=== PATIENT | female | born 1960 | race Caucasian/White ===

== ENCOUNTER 2020-04-30 17:25 | Emergency (ER) | payer SELFPAY ==
--- OUTSIDE RECORDS SUMMARY | 2020-04-30 17:28 | XMS REPORT | Clinical Summary ---
:1960 Author Organization [facility] Address [address] [place] [id number] Care Team Providers Name Role Phone Asked, Pcp Primary Care Provider Unavailable Allergies Active Allergy Reactions Severity Noted Date Comments Ciprofloxacin Shortness Of Breath High 09/29/2018 Hives Iodine 09/29/2018 Latex Rash Low 12/07/2007 Sulfa (Sulfonamide Antibiotics) 9 Midazolam 09/29/2018 Medications Not on file Active Problems Not on file Surgical History Surgery Date Site/Laterality Comments TONSILLECTOMY ABDOMINAL SURGERY Medical History Medical History Date Comments Anxiety HTN (hypertension) A-fib (HCC) Autoimmune disease (HCC) Congenital heart anomaly Osteoarthritis Abnormal liver enzymes Social History Tobacco Use Types Packs/Day Years Used Date Never Smoker Alcohol Use Drinks/Week oz/Week Comments Not Currently Sex Assigned at Date Recorded Not on file Last Filed Vital Signs Not on file Plan of Treatment Health Maintenance Due Date Last Done Comments COVID-19 VACCINE (#1) 1977 CERVICAL CANCER SCREENING 1982 BREAST CANCER SCREENING 09/29/2011 04/08/2009, 04/08/2009 COLONOSCOPY SCREENING 09/29/2011 SHINGLES VACCINES (#1) 09/29/2011 INFLUENZA VACCINE 12/02/2019 Results Not on fileafter 04/30/2019 Insurance Payer Benefit Plan / Subscriber ID Effective Dates Phone Addre ss Type Group MEDICARE MEDICARE PART A [id number] 1996-Present [facility] [place] Medicare AND B Advance Directives For more information, please contact: [phone] Type Date Recorded 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
--- OUTSIDE RECORDS SUMMARY | 2020-04-30 17:28 | XMS REPORT | Clinical Summary ---
:1960 Author Organization [facility] Address [address] [place] [address] Care Team Providers Name Role Phone Connie Olvera Primary Care Provider Allergies Active Allergy Reactions Severity Noted Date Comments Ciprofloxacin Shortness Of Breath High 09/29/2018 Hives Iodine Shortness Of Breath High 12/07/2007 Latex Rash Low 12/07/2007 Midazolam Other (See Comments) 12/07/2007 Heart c omplications Sulfamethoxazole-Trimetho Nausea And Vomiting High 02/09/20 14 Upsets stomach prim Medications Medication Sig Dispensed Refills Start Date End Date Status cholecalciferol, TAKE 1 CAPSULE ONCE 5 09/19/2018 Active vitamin D3, 50,000 EVERY WEEK unit capsule clonazePAM take 1 tablet (1 mg) 0 Active (KLONOPIN) 1 MG by oral route 3 times tablet per day cyanocobalamin Inject 1,000 mcg 5 08/25/2018 Active (VITAMIN B-12) 1,000 intramuscularly once mcg/mL injection every 3 weeks . cyproheptadine TAKE 2 ML BY MOUTH 3 08/11/2018 Active (PERIACTIN) 2 mg/5 TWICE DAILY mL syrup desoximetasone GENTLY MASSAGE INTO 1 09/24/2018 Active (TOPICORT) 0.25 % THE AFFECTED AREA 3 cream TIMES A DAY fentaNYL (DURAGESIC) Place 1 patch onto 0 06/28/2014 Active 50 mcg/hr patch the skin every third day . furosemide (LASIX) Take 40 mg by mouth 3 09/27/2018 Active 40 MG tablet daily . HYDROcodone-acetamin Take 1 tablet by 0 09/12/2018 Active ophen (NORCO 10-325) mouth 4 (four) times 10-325 mg per tablet daily as needed FOR PAIN. lisinopril Take 10 mg by mouth 0 08/09/2018 Active (PRINIVIL,ZESTRIL) daily . 10 MG tablet magnesium oxide Take 2 tablets by 3 08/11/2018 Active (MAG-OX) 400 mg mouth 2 (two) times (241.3 mg magnesium) daily. tablet metFORMIN Take 500 mg by mouth 5 09/19/2018 Active (GLUCOPHAGE-XR) 500 daily. MG 24 hr tablet methocarbamol Take 750 mg by mouth 3 08/11/2018 Active (ROBAXIN) 750 MG 4 (four) times daily tablet as needed . ondansetron (ZOFRAN) Take 8 mg by mouth as 0 Active 8 MG tablet needed . pantoprazole Take 40 mg by mouth 2 3 09/11/2018 Active (PROTONIX) 40 MG (two) times daily. tablet potassium chloride Take 20 mEq by mouth 4 07/14/2018 Active SA (K-DUR,KLOR-CON) daily . 20 MEQ tablet promethazine TAKE 1 TEASPOONFUL BY 3 08/11/2018 Active (PHENERGAN) 6.25 MOUTH EVERY 6 HOURS mg/5 mL syrup NEEDED FOR NAUSEA AND VOMITING tiZANidine Take 4 mg by mouth as 0 08/09/2018 Active (ZANAFLEX) 4 MG needed . tablet traZODone (DESYREL) Take 100 mg by mouth 1 9 Active 100 MG tablet as needed . ALPRAZolam (XANAX) 2 Take 2 mg by mouth 3 0 Active MG tablet (three) times daily. Active Problems Problem Noted Date Abnormal liver enzymes 09/29/2018 Last Assessment & Plan: Liver enzymes elevated in cholestatic pattern mild elevation in AP and GGT and history of previous elevation in a hepatocellular pattern without evidence of synthetic dysfunction. Unclear etiology, poss ible drug induced liver injury. She has risk factors for fatty liver with metabolic syndrome. We will complete a comprehensive workup to evaluate for other etiologies of liver disease including autoimmu ne including AMA, viral, metabolic and g enetic diseases. Sh has a pacemaker not compatible with MRI- we will get abdominal ultrasound to assess anatomy of the liver, fatty liver and assess bile ducts. f ibrsocan with fat cap as non-invasive as sessment of fibrosis and fat content. Immunity status testing 09/29/2018 Last Assessment & Plan: Serological tests will be completed to d etermine the presence of immunity to hepatitis A and B. If the patient does n ot have adequate immunity, we would recommend administration of appropriate vaccinatio n as per CDC guidelines by the primary care provider. Metabolic syndrome 09/29/2018 Last Assessment & Plan: She fits the criteria of metabolic syndrome with overwight, prediabetes, HTN and HLD and hypertriglyceridemia . Risk factor for fatty liver disease. It is safe to continue her current medications. We d iscussed the importance of weight loss w ith a focus on carbohydrate restriction and exercise in managing fatty liver disease.. She needs to have a better control of hyperlipidemia and hyperlipidemia. Cancer screening 09/29/2018 Last Assessment & Plan: Up to date with colorectal cancer screen ing - colonoscopy 2014 normal per patient. Family History Medical History Relation Name Comments Dementia Mother Heart disease Mother Stroke Mother Relation Name Status Comments Mother Social History Tobacco Use Types Packs/Day Years Used Date Never Smoker Smokeless Tobacco: Never Used Alcohol Use Drinks/Week oz/Week Comments No Alcohol Habits Answer Date Recorded How often do you have a drink containing alcohol? Never 09/29/2018 How many drinks containing alcohol do you have on a typical Not asked day when you are drinking? How often do you have six or more drinks on one occasion? No t asked Sex Assigned at Date Recorded Not on file Last Filed Vital Signs Not on file Plan of Treatment Health Maintenance Due Date Last Done Comments BREAST CANCER SCREENING 1960 COLON CANCER SCREENING COLONOSCOPY 1960 CERVICAL CANCER SCREENING PAP ONLY (Age 21-65) 1982 MEDICARE ANNUAL WELLNESS (YEAR 2 or FIRST YEAR if no 07/02/1997 IPPE) LIPID PANEL 2006 INFLUENZA VACCINE (#1) 2020 Results Not on fileafter 04/30/2019
--- OUTSIDE RECORDS SUMMARY | 2020-04-30 17:28 | XMS REPORT | Continuity of Care Document ---
:1960 Author Organization [facility] t Address [address] [place] [address] Care Team Providers Name Role Phone Asked, Pcp Primary Care Physician Unavailable Glenys OBANDO Attending Clinician Unavailable Problems Condition Condition Condition Status Onset Resolution Last Treating Co mments Source Name Details Category Date Date Treatment Clinician Date Abnormal Abnormal Disease [facility] - enzymes enzymes 00:00: t & Plan: Medic al 00 Liver Center enzymes elevated in cholestat ic pattern mild elevation in AP and GGT and history of previous elevation in a hepatocel lular pattern without evidence of synthetic dysfuncti on. Unclear etiology, possible drug induced liver injury. She has risk factors for fatty liver with metabolic syndrome. We will complete a comprehen sive workup to evaluate for other etiologie s of liver disease including autoimmun e including AMA, viral, metabolic and genetic diseases. Sh has a pacemaker not compatibl e with MRI- we will get abdominal ultrasoun d to assess anatomy of the liver, fatty liver and assess bile ducts. fibrsocan with fat cap as non-invas jeison assessmen t of fibrosis and fat content. Metabolic Metabolic Disease Active Last [facility] syndrome syndrome 09-29 Assessmen Ivania es - 00:00: t & Plan: Medical 00 She fits Center the criteria of metabolic syndrome with overwight , prediabet es, HTN and HLD and hypertrig lyceridem ia . Risk factor for fatty liver disease. It is safe to continue her current medicatio ns. We discussed the importanc e of weight loss with a focus on carbohydr ate restricti on and exercise in managing fatty liver disease.. She needs to have a better control of hyperlipi demia and hyperlipi demia. Cancer Cancer Disease Active Last [facility] screening screening 5-30 Assessmen L ukes - 00:00: t & Plan: Medical 00 Up to Center date with andi petty cancer screening - colonosco py 2013 normal per patient. Allergies, Adverse Reactions, Alerts Allergy Allergy Status Severity Reaction(s) Onset Inactive Treating Comm ents Source Name Type Date Date Clinician Ciproflo Propensi Active Shortness Of Hives [facility] xacin ty to Breath 5-30 [facility]i adverse 00:00: st reaction 00 s to drug Iodine Propensi Active [facility] ty to 09-29 [facility] adverse 00:00: st reaction 00 s to drug Sulfa Propensi Active [place] (Sulfona ty to 09-29 Methodi mide adverse 00:00: st Antibiot reaction 00 ics) s to drug Midazola Propensi Active [place] ty to 09-29 [facility] adverse 00:00: st reaction 00 s to drug Ciproflo Propensi Active Shortness Of Hives [facility] xacin ty to Breath -30 [facility] - adverse 00:00: Medical reaction 00 [facility] Sulfamet Propensi Active Nausea And 2013-[address] hoxazole ty to Vomiting 0 stomach [facility] - -Trimeth adverse 00:00: Medical oprim reaction 00 [facility] Latex Propensi Active Rash Miguel ty to 12-06 [facility]i adverse 00:00: st reaction 00 s to drug Iodine Propensi Active Shortness Of [facility] ty to Breath 12-06 [facility] - adverse 00:00: Medical reaction 00 [place] Latex Propensi Active Rash [facility] ty to 12-06 [facility] - adverse 00:00: Medical reaction 00 [place] Midazola Propensi Active Other (See Heart [facility] m ty to Comments) 12-06 complicat Luke [facility] - adverse 00:00: ions Medical reaction 00 [facility] Family History Family Member Diagnosis Comments Start Date Stop Date Source Natural mother Dementia [facility] Natural mother Heart disease [facility] Natural mother Stroke [facility] Social History Social Habit Start Date Stop Date Quantity Comments Source History SDOH [facility] - Alcohol Std Drinks Medica l Center History [facility] EILEEN Olson [facility] - Alcohol Binge Medical Alyssa ter Sex Assigned At [facility] andrew - [facility] Tobacco use and 2018-09-29 2018-09-29 Never used EILEEN Kiser kes - exposure 00:00:00 00:00:00 [facility] Alcohol intake 2018-09-29 2018-09-29 [facility] non-drinker of Medical Ce nter alcohol (finding) History [facility] 2018-09-29 2018-09-29 1 [facility] Frequency 00:00:00 00:00:00 [facility] Center Smoking Status Start Date Stop Date Source Never smoker [facility] andrew - M edical Center Medications Ordered Filled Start Stop Current Ordering Indication Dosage Frequency Signature Comments Components Source Medication Medication Date Date Medication? Clinician (SIG) Name Name ALPRAZolam Yes 2mg [id number] Take [address] (XANAX) 2 6-03 [id number] by mouth 3 [facility] - MG tablet 15:13: 3D (three) Medic al 16 times Center daily. clonazePAM 2018- Yes take 1 [facility] (KLONOPIN) 5-30 tablet (1 Luke s - 1 MG tablet 11:19: mg) by Medi gabriel 55 oral route Center 3 times per day ondansetron 2018- Yes 8mg Take [address] (ZOFRAN) 8 5-30 by mouth [facility] - MG tablet 11:19: as needed Med ical 55 . Center furosemide Yes 40mg QD Take [address] (LASIX) 40 5-28 by mouth [facility] - MG tablet 00:00: daily . Medic al 00 Center desoximetas Yes GENTLY [facility] one 5-25 MASSAGE [facility] - (TOPICORT) 00:00: INTO THE Med ical 0.25 % 00 AFFECTED Center cream AREA 3 TIMES A DAY cholecalcif Yes TAKE [address] [facility] [address] estela, 5-20 CAPSULE [facility] - vitamin D3, 00:00: ONCE EVERY Medical 50,000 unit 00 WEEK Center capsule metFORMIN Yes 500mg QD Take [address] (GLUCOPHAGE 5-20 mg by [facility]ukes - -XR) 500 MG 00:00: mouth Medic al 24 hr 00 daily. Center tablet HYDROcodone 2019- Yes 1{tbl} Take [address] -acetaminop 5-13 tablet by Ivania huff (NORCO 00:00: mouth 4 Medi gabriel 10-325) 00 (four) Center 10-325 mg times per tablet daily as needed FOR PAIN. pantoprazol 2018- Yes 40mg Q.5D Take [address] [facility] e 5-12 by mouth 2 [facility] - (PROTONIX) 00:00: (two) Medica l 40 MG 00 times Center tablet daily. cyanocobala 2018- Yes 1000ug Inject [facility] min 4-25 1,000 mcg [facility] - (VITAMIN 00:00: intramuscu Med ical B-12) 1,000 00 larly once Ce nter mcg/mL every 3 injection weeks . traZODone Yes 100mg Take [address] (DESYREL) 4-24 mg by [facility]ukes - 100 MG 00:00: mouth as Medical tablet 00 needed . Center cyproheptad Yes TAKE [address] ine 4-11 BY MOUTH [facility] - (PERIACTIN) 00:00: TWICE Medic al 2 mg/5 mL 00 DAILY Center syrup magnesium 2018-0 Yes 2{tbl} Q.5D Take [address] oxide 4-11 tablets by [facility] - (MAG-OX) 00:00: mouth 2 Medica l 400 mg 00 (two) Center (241.3 mg times magnesium) daily. tablet methocarbam Yes 750mg Take [address] ol 4-11 mg by [facility] - (ROBAXIN) 00:00: mouth 4 Medic al 750 MG 00 (four) Center tablet times daily as needed . promethazin Yes TAKE [address] [facility] e 4-11 TEASPOONFU [facility]ukes - (PHENERGAN) 00:00: L BY MOUTH Medical 6.25 mg/5 00 EVERY 6 Center mL syrup HOURS NEEDED FOR NAUSEA AND VOMITING lisinopril 2018-0 Yes 10mg QD Take [address] (PRINIVIL,Z 4-09 by mouth Luke s - ESTRIL) 10 00:00: daily . Medi gabriel MG tablet 00 Center tiZANidine 2018-0 Yes 4mg Take [address] (ZANAFLEX) 4-09 by mouth [facility] - 4 MG tablet 00:00: as needed M edical 00 . Center potassium 2018- Yes 20meq QD Take [address] chloride SA 3-14 mEq by [facility] - (K-DUR,KLOR 00:00: mouth Medic al -CON) 20 00 daily . [place] MEQ tablet fentaNYL Yes 1{patch Place [address] [facility] (DURAGESIC) 2-26 } patch onto Bailey kes - 50 mcg/hr 00:00: the skin Medi gabriel patch 00 every Center third day . Procedures This patient has no known procedures. Plan of Care Planned Activity Planned Date Details Comments Source Future Scheduled 2020-01-[address] [facility] - Test 00:00:00 (#1) [code = [facility] Center INFLUENZA VACCINE (#1)] Future Scheduled 2019-12-02 INFLUENZA VACCINE [place] 00:00:00 [code = INFLUENZA VACCINE] Future Scheduled 2011-09-29 BREAST CANCER [facility]odist Test 00:00:00 SCREENING [code = BREAST CANCER SCREENING] Future Scheduled 2011-09-29 COLONOSCOPY SCREENING [place] [facility] Test 00:00:00 [code = COLONOSCOPY SCREENING] Future Scheduled 2011-09-29 SHINGLES VACCINES [place] [facility] Test 00:00:00 (#1) [code = SHINGLES VACCINES (#1)] Future Scheduled [address] [facility] - Test 00:00:00 (procedure) [code = [facility] 74991268] Future Scheduled 1997-07-[address] [facility] - Test 00:00:00 WELLNESS (YEAR 2 or Medical Center FIRST YEAR if no IPPE) [code = MEDICARE ANNUAL WELLNESS (YEAR 2 or FIRST YEAR if no IPPE)] Future Scheduled 1982 Screening for [facility] thodist Test 00:00:00 malignant neoplasm of cervix (procedure) [code = 317453468] Future Scheduled [address] [facility] - Test 00:00:00 malignant neoplasm of Medica l [place] cervix (procedure) [code = 545739725] Future Scheduled 1977 COVID-19 VACCINE (#1) [place] [facility] Test 00:00:00 [code = COVID-19 VACCINE (#1)] Future Scheduled [address] [facility] - Test 00:00:00 malignant neoplasm of [facility] Center breast (procedure) [code = 580826503] Future Scheduled [address] [facility] - Test 00:00:00 malignant neoplasm of [facility] colon (procedure) [code = 110990487] Results Test Description Test Time Test Comments Results Result Comments Source ANTI-NUCLEAR ANTIBODY (MARCIAL) 2018-10-01 06:01:00 Test Item Value Reference Range Interpretation Comme nts ANTI-NUCLEAR ANTIBODY (MARCIAL) (BEAKER) (test code = 418) Negative Negative Test performed by IFA method.Test performed by IFA method.[id number] 16:04:00 Test Item Value Reference Range Interpretation Comments FERRITIN (BEAKER) (test code = 361) 57 ng/mL 5-275 HEPATITIS B SURFACE [id number] 15:01:00 Test Item Value Reference Range Interpretation Comments HEPATITIS B SURFACE ANTIBODY < mIU/mL <8.0 (BEAKER) (test code = 647) HEPATITIS B SURFACE [id number] 15:00:00 Test Item Value Reference Range Interpretation Comments HEPATITIS B SURFACE ANTIGEN (2) Nonreactive Nonreactive (BEAKER) (test code = 2585) HEPATITIS B CORE ANTIBODY, [id number] 15:00:00 Test Item Value Reference Range Interpretation Comments HEPATITIS B CORE TOTAL ANTIBODY Nonreactive Nonreactive (BEAKER) (test code = 497) HEPATITIS A ANTIBODY, [id number] 15:00:00 Test Item Value Reference Range Interpretation Comments HEPATITIS A IGG ANTIBODY (BEAKER) Nonreactive Nonreactive (test code = 2797) HEPATITIS C [id number] 14:52:00 Test Item Value Reference Range Interpretation Comments HEPATITIS C ANTIBODY (BEAKER) Nonreactive Nonreactive (test code = 367) GAMMA GLUTAMYL TRANSFERASE (GGT)2018-09-29 14:38:00 Test Item Value Reference Range Interpretation Comments GAMMA GLUTAMYL TRANSFERASE (BEAKER) 134 U/L 9-64 H (test code = 364) [id number] 14:34:00 Test Item Value Reference Range Interpretation Comments ALPHA-1 ANTITRYPSIN (BEAKER) 171.60 mg/dL 90.00-200.00 (test code = 502) IRON, TIBC, % SAT. (WITHOUT FERRITIN)2018-09-29 14:32:00 Test Item Value Reference Range Interpretation Comments IRON (BEAKER) (test code = 547) 110.0 ug/dL 40.0-160.0 TOTAL IRON BINDING CAPACITY 444 ug/dL 250-450 (BEAKER) (test code = 769) IRON % SATURATION (2) (BEAKER) 25 % 20-55 (test code = 2590)
--- NOTE | 2020-04-30 18:44 | ER ---
Nurse's Notes [facility] Name: Skye Leal Age: 59 yrs Sex: Female : 1960 Arrival Date: 04/30/2020 Time: 17:26 Bed Waiting Private MD: Diagnosis: Presentation: 04/30 17:35 Chief complaint: Patient states: Fell while pulling battery out of a vehicle. Landed on 1 concrete. Hematoma noted to L eye and cheek area. Left hip and left knee pain. No N/V. Coronavirus screen: Client denies travel out of the [place] in the last 14 days. At this time, the client does not indicate any symptoms associated with coronavirus-19. Ebola Screen: Patient denies travel to an Ebola-affected area in the 21 days before illness onset. Initial Sepsis Screen: Does the patient meet any 2 criteria? No. Patient's initial sepsis screen is negative. Does the patient have a suspected source of infection? Yes: Bone or joint infection. Risk Assessment: Do you want to hurt yourself or someone else? Patient reports no desire to harm self or others. Onset of symptoms was April 30, 2020. 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 - Social history:: Smoking status: Patient denies any tobacco usage or history of. Assessment: 17:35 General: Appears uncomfortable, Behavior is cooperative, appropriate for age. Pain: ll1 Complains of pain in L eye/cheek Pain currently is 10 out of 10 on a pain scale. Quality of pain is described as aching, throbbing, Pain began 2 hours ago. Neuro: Level of Consciousness is awake, alert, obeys commands, Oriented to person, place, time, situation, Appropriate for age Speech is normal, Facial symmetry appears normal, Reports headache. Cardiovascular: No deficits noted. Respiratory: No deficits noted. GI: No deficits noted. Musculoskeletal: Circulation, motion, and sensation intact. Capillary refill < 3 seconds, Reports pain in L hip/L knee. Injury Description: fall, head injury. Denies LOC. "Rang my parada". Vital Signs: 17:35 BP 137 / 81; Pulse 73; Resp 16; Temp 98.1; Pulse Ox 98% ; Weight 47.63 kg; Height 5 ft. ll1 4 in. (162.56 cm); Pain 10/10; 17:35 Body Mass Index 18.02 (47.63 kg, 162.56 cm) ll1 ED Course: 17:26 Patient arrived in ED. ag5 17:34 Arm band placed on. ll1 17:37 Triage completed. 1 18:30 CT personnel went to get patient from [facility] for head CT. Patient refused to go get a CT 1 scan unless there is a bed available for her at this time. Patient chose to leave without being seen by a provider, because there was no bed immediately available. Administered Medications: No medications were administered Outcome: 18:30 Eloped from waiting room, before seeing physician 1 18:30 Condition: unchanged 18:43 Patient left the ED. 1 Signatures: Santosh Winters ag5 Joey Andrade, RN RN 1
[2020-04-30 18:48] VITALS: BP 137/81; TEMP 98.1; O2SAT 98
== END 2020-04-30 18:43 | disposition left against medical advice (07) ==
LOC: ER 17:25
DX: Z53.21 Procedure and treatment not carried out due to patient leaving prior to being seen by health care provider (principal)
CPT/HCPCS: 99281